=== PATIENT | male | born 1960 | race Caucasian/White ===

== ENCOUNTER 2016-11-16 16:18 | Emergency (ER) | payer OTHER ==
--- NOTE | 2016-11-16 17:33 | DIAGNOSTIC IMAGING REPORT ---
PROCEDURE: XR ABDOMEN 1 VIEW INDICATION: ABDOMINAL PAIN TECHNIQUE: AP upright view. COMPARISON: None. FINDINGS: There is moderate stool throughout the colon. Small bowel pattern is normal. Soft tissues and osseous structures are normal. No evidence of free air. IMPRESSION: 1. Moderate stool throughout the colon. Consider obstipation. 2. Otherwise negative abdomen.
--- NOTE | 2016-11-16 17:59 | ED ORDER SUMMARY ---
..... Patient: DANNY DUNLAP OrderSheet [facility] VisitID: [id number] [address] [place] [address] 56y, M Registration Date/Time: 11/16/2016 ORDER SHEET Weight: 92.9 kg Allergies: No Known Drug Allergy GENERAL ORDERS: Abdomen 1V (right flank pain after sneezing, with seatbelt on ...has pain in right flank radiating into his back. ?stone) Urgent (17:01 11/16/2016 Kendrick GENTILE) (Ack 17:03 NHouse ER Tech1) (17:10 NHouse ER Tech1) MEDICATION ORDERS: IV FLUIDS: ORDER SHEET NOTES: [Electronically signed by Eloise Dougherty R.N. (19:08 11/16/2016)] [Electronically signed by Alyse Moreira PA-C (00:42 11/17/2016)] [Electronically locked/signed by Eloise Dougherty R.N. (19:08 11/16/2016)]
--- NOTE | 2016-11-16 17:59 | ED ORDER SUMMARY ---
..... Patient: DANNY DUNLAP OrderSheet [facility] VisitID: [id number] [address] [place] [address] 56y, M Registration Date/Time: 11/16/2016 ORDER SHEET Weight: 92.9 kg Allergies: No Known Drug Allergy GENERAL ORDERS: Abdomen 1V (right flank pain after sneezing, with seatbelt on ...has pain in right flank radiating into his back. ?stone) Urgent (17:01 11/16/2016 Kendrick GENTILE) (Ack 17:03 NHouse ER Tech1) (17:10 NHouse ER Tech1) MEDICATION ORDERS: IV FLUIDS: ORDER SHEET NOTES: [Electronically signed by Eloise Dougherty R.N. (19:08 11/16/2016)] [Electronically signed by Alyse Moreira PA-C (00:42 11/17/2016)] [Electronically locked/signed by Eloise Dougherty R.N. (19:08 11/16/2016)]
--- NOTE | 2016-11-16 17:59 | ED CLINICAL REPORT ---
Clinical Report - Physicians/Mid Levels [facility] [address] [place] [address] 11/16/2016 16:18 Patient: DANNY DUNLAP Time Seen: 16:54; initial patient contact. Arrived- By private vehicle. Historian- patient. HISTORY OF PRESENT ILLNESS Chief Complaint: ABDOMINAL PAIN. At its maximum, severity described as 6 / 10. ((right rib pain post sneeze 2 days ago now worsening to the right flank, no fever, no chills, no urinary sx.). It is described as sharp and it is described as located in the right chest and the right upper quadrant and radiating to the right flank. No nausea, loss of appetite, vomiting or diarrhea. Similar symptoms previously: None. Recent medical care: Not recently seen/assessed. REVIEW OF SYSTEMS No constipation, difficulty with urination, pain with urination, urinary frequency or fever. No chills. All systems otherwise negative, except as recorded above. PAST HISTORY See nurses notes. Problems: Pharyngitis. Gastritis. Immunizations. Gastroesophageal Reflux Disease. Rib Fracture. Concussion. Myocardial Infarction. Abdominal Pain. Tetanus Status. Hypercholesterolemia. Medications: None. Allergies: No Known Drug Allergy. SOCIAL HISTORY Never smoker. No alcohol use or drug use. FAMILY HISTORY Negative. ADDITIONAL NOTES The nursing notes have been reviewed with agreement regarding the chief complaint, HPI, ROS, PMH and patient medications and allergies. PHYSICAL EXAM Vital Signs: 11/16/2016 18:00 BP: 124/78. HR: 68. RR: 16. O2 saturation: 97%. Pain level now: 6/10. Have been reviewed. Appearance: Alert. Oriented X3. No acute distress. Anxious. Neck: Normal inspection. CVS: Normal heart rate and rhythm. Heart sounds normal. Respiratory: No respiratory distress. Breath sounds normal. Chest nontender. Abdomen: Soft. Mild tenderness in the right side of the abdomen. No guarding, rebound tenderness or Izaguirre's or obturator sign present. Bowel sounds normal. No organomegaly. No mass. Femoral pulses equal. Back: Normal inspection. Skin: Skin warm and dry. Normal skin color. No rash. Normal skin turgor. Extremities: No lower extremity edema. Neuro: Oriented X 3. LABS, X-RAYS, AND EKG KUB: Normal abdominal study. (PROCEDURE: XR ABDOMEN 1 VIEW INDICATION: ABDOMINAL PAIN TECHNIQUE: AP upright view. COMPARISON: None. FINDINGS: There is moderate stool throughout the colon. Small bowel pattern is normal. Soft tissues and osseous structures are normal. No evidence of free air. IMPRESSION: 1. Moderate stool throughout the colon. Consider obstipation. 2. Otherwise negative abdomen. Electronically Final signed by:Gentry Aguillon MD 11/16/2016 5:33:03 PM Technologist: DINESH). PROGRESS AND PROCEDURES Course of Care: Patient is stable. Symptoms better. CLINICAL IMPRESSION Acute abdominal pain of unknown cause (right flank pain). Constipation INSTRUCTIONS No restrictions to activity. Drink plenty of fluids. (trial of glycerin suppository or MOM for relief of constipation. if pain increases, RTC). Warnings: GENERAL WARNINGS: Return or contact your physician immediately if your condition worsens or changes unexpectedly, if not improving as expected, or if other problems arise. Prescription Medications: Hydrocodone/APAP 5mg / 325mg: take 1 orally every 6 hours as needed for pain. Dispense ten (10). No refill. Understanding of the discharge instructions verbalized by patient. (Electronically signed by Alyse Moreira PA-C 11/17/2016 0:42)
--- NOTE | 2016-11-16 17:59 | ED CLINICAL REPORT ---
Clinical Report - Physicians/Mid Levels [facility] [address] [place] [address] 11/16/2016 16:18 Patient: DANNY DUNLAP Time Seen: 16:54; initial patient contact. Arrived- By private vehicle. Historian- patient. HISTORY OF PRESENT ILLNESS Chief Complaint: ABDOMINAL PAIN. At its maximum, severity described as 6 / 10. ((right rib pain post sneeze 2 days ago now worsening to the right flank, no fever, no chills, no urinary sx.). It is described as sharp and it is described as located in the right chest and the right upper quadrant and radiating to the right flank. No nausea, loss of appetite, vomiting or diarrhea. Similar symptoms previously: None. Recent medical care: Not recently seen/assessed. REVIEW OF SYSTEMS No constipation, difficulty with urination, pain with urination, urinary frequency or fever. No chills. All systems otherwise negative, except as recorded above. PAST HISTORY See nurses notes. Problems: Pharyngitis. Gastritis. Immunizations. Gastroesophageal Reflux Disease. Rib Fracture. Concussion. Myocardial Infarction. Abdominal Pain. Tetanus Status. Hypercholesterolemia. Medications: None. Allergies: No Known Drug Allergy. SOCIAL HISTORY Never smoker. No alcohol use or drug use. FAMILY HISTORY Negative. ADDITIONAL NOTES The nursing notes have been reviewed with agreement regarding the chief complaint, HPI, ROS, PMH and patient medications and allergies. PHYSICAL EXAM Vital Signs: 11/16/2016 18:00 BP: 124/78. HR: 68. RR: 16. O2 saturation: 97%. Pain level now: 6/10. Have been reviewed. Appearance: Alert. Oriented X3. No acute distress. Anxious. Neck: Normal inspection. CVS: Normal heart rate and rhythm. Heart sounds normal. Respiratory: No respiratory distress. Breath sounds normal. Chest nontender. Abdomen: Soft. Mild tenderness in the right side of the abdomen. No guarding, rebound tenderness or Izaguirre's or obturator sign present. Bowel sounds normal. No organomegaly. No mass. Femoral pulses equal. Back: Normal inspection. Skin: Skin warm and dry. Normal skin color. No rash. Normal skin turgor. Extremities: No lower extremity edema. Neuro: Oriented X 3. LABS, X-RAYS, AND EKG KUB: Normal abdominal study. (PROCEDURE: XR ABDOMEN 1 VIEW INDICATION: ABDOMINAL PAIN TECHNIQUE: AP upright view. COMPARISON: None. FINDINGS: There is moderate stool throughout the colon. Small bowel pattern is normal. Soft tissues and osseous structures are normal. No evidence of free air. IMPRESSION: 1. Moderate stool throughout the colon. Consider obstipation. 2. Otherwise negative abdomen. Electronically Final signed by:Gentry Aguillon MD 11/16/2016 5:33:03 PM Technologist: DINESH). PROGRESS AND PROCEDURES Course of Care: Patient is stable. Symptoms better. CLINICAL IMPRESSION Acute abdominal pain of unknown cause (right flank pain). Constipation INSTRUCTIONS No restrictions to activity. Drink plenty of fluids. (trial of glycerin suppository or MOM for relief of constipation. if pain increases, RTC). Warnings: GENERAL WARNINGS: Return or contact your physician immediately if your condition worsens or changes unexpectedly, if not improving as expected, or if other problems arise. Prescription Medications: Hydrocodone/APAP 5mg / 325mg: take 1 orally every 6 hours as needed for pain. Dispense ten (10). No refill. Understanding of the discharge instructions verbalized by patient. (Electronically signed by Alyse Moreira PA-C 11/17/2016 0:42)
--- NOTE | 2016-11-16 17:59 | ED NURSING NOTES ---
Clinical Report - Nurses [facility] [address] [place] [address] 11/16/2016 16:18 Patient: DANNY DUNLAP TRIAGE Triage time 1640. Acuity: LEVEL 4. Chief Complaint: (right rib pain post sneeze 2 days ago). Alert. No acute distress. --16:44 Liliana Ames 16:41 11/16/16. BP: 146/87. HR: 66. RR: 16. O2 saturation: 97%. Temp: 98.3 F. Pain level now 7/10. --16:44 Liliana Ames. Weight: 92.9 kg. Height/Length: 72 inches. BMI: 27.8. --16:41 Liliana Ames. Medications None. --16:42 Liliana Ames. Allergies No Known Drug Allergy. --16:42 Liliana Amse. History Arrived by private vehicle. Historian: patient and family. Accompanied by family. Onset. (2 days ago). Treatment [employer]: None. SOCIAL HX: Occasional alcohol use. ( Pt watching football game on TV during triage). --16:44 Liliana Ames. PROBLEMS: Gastroesophageal Reflux Disease. Rib Fracture. Myocardial Infarction. Abdominal Pain. Hypercholesterolemia. --16:42 Liliana Ames. ADDITIONAL SURGERIES: Rhinoplasty. Sinus Surgery. --16:42 Liliana Ames. Interventions ID band on patient. To treatment room. --16:44 Liliana Ames. PHYSICAL ASSESSMENT Ambulatory to room. GENERAL / NEURO / PSYCH: Alert. Oriented X 4. Appears in no acute distress. HEENT: Mucous membranes are pink. RESPIRATORY: Respirations not labored. Breath sounds within normal limits. CVS: Normal sinus rhythm noted. Capillary refill less than 2 seconds. GI / : Abdomen soft and nontender. Bowel sounds within normal limits. SKIN: Skin is warm and dry. --16:44 Liliana Ames. NURSING PROGRESS NOTES 16:44. Patient gowned. Reassurance given. Patient identifiers checked. Call light placed in reach. Side rails up. Bed placed in lowest position. Patient ready for evaluation- chart flagged. ( Pt placed in room by triage nurse). --19:06 Eloise Dougherty R.N. 17:10. Patient returned from radiology by stretcher with tech. --19:07 Eloise Dougherty R.N. 17:50. ( First contact with pt Pt fully dressed, sitting on chair in room , in no acute distress, at bedside.). --19:08 Eloise Dougherty R.N. DISPOSITION / DISCHARGE 18:00. Condition at departure: improved and stable. No learning barriers present. Discharge instructions provided and reviewed with the patient and spouse. Reviewed medication(s) (vicodin, MOM). Patient and spouse verbalized understanding. Written instructions provided in [place]. The patient was discharged home and accompanied by spouse. He left the Emergency Department ambulatory and via private vehicle. Spouse driving. --19:05 Eloise Dougherty R.N. 18:00 11/16/16. BP: 124/78. HR: 68. RR: 16. O2 saturation: 97% on room air. Temp: deferred. Pain level now: 04/18. --19:05 Eloise Dougherty R.N. Locked/Released at 11/16/2016 19:08 by Eloise Dougherty R.N.
--- NOTE | 2016-11-16 17:59 | ED NURSING NOTES ---
Clinical Report - Nurses [facility] [address] [place] [address] 11/16/2016 16:18 Patient: DANNY DUNLAP TRIAGE Triage time 1640. Acuity: LEVEL 4. Chief Complaint: (right rib pain post sneeze 2 days ago). Alert. No acute distress. --16:44 Liliana Ames 16:41 11/16/16. BP: 146/87. HR: 66. RR: 16. O2 saturation: 97%. Temp: 98.3 F. Pain level now 7/10. --16:44 Liliana Ames. Weight: 92.9 kg. Height/Length: 72 inches. BMI: 27.8. --16:41 Liliana Ames. Medications None. --16:42 Liliana Ames. Allergies No Known Drug Allergy. --16:42 Liliana Ames. History Arrived by private vehicle. Historian: patient and family. Accompanied by family. Onset. (2 days ago). Treatment VOICE TEACHER: None. SOCIAL HX: Occasional alcohol use. ( Pt watching football game on TV during triage). --16:44 Liliana Ames. PROBLEMS: Gastroesophageal Reflux Disease. Rib Fracture. Myocardial Infarction. Abdominal Pain. Hypercholesterolemia. --16:42 Liliana Ames. ADDITIONAL SURGERIES: Rhinoplasty. Sinus Surgery. --16:42 Liliana Ames. Interventions ID band on patient. To treatment room. --16:44 Liliana Ames. PHYSICAL ASSESSMENT Ambulatory to room. GENERAL / NEURO / PSYCH: Alert. Oriented X 4. Appears in no acute distress. HEENT: Mucous membranes are pink. RESPIRATORY: Respirations not labored. Breath sounds within normal limits. CVS: Normal sinus rhythm noted. Capillary refill less than 2 seconds. GI / : Abdomen soft and nontender. Bowel sounds within normal limits. SKIN: Skin is warm and dry. --16:44 Liliana Ames. NURSING PROGRESS NOTES 16:44. Patient gowned. Reassurance given. Patient identifiers checked. Call light placed in reach. Side rails up. Bed placed in lowest position. Patient ready for evaluation- chart flagged. ( Pt placed in room by triage nurse). --19:06 Eloise Dougherty R.N. 17:10. Patient returned from radiology by stretcher with tech. --19:07 Eloise Dougherty R.N. 17:50. ( First contact with pt Pt fully dressed, sitting on chair in room , in no acute distress, at bedside.). --19:08 Eloise Dougherty R.N. DISPOSITION / DISCHARGE 18:00. Condition at departure: improved and stable. No learning barriers present. Discharge instructions provided and reviewed with the patient and spouse. Reviewed medication(s) (vicodin, MOM). Patient and spouse verbalized understanding. Written instructions provided in [place]. The patient was discharged home and accompanied by spouse. He left the Emergency Department ambulatory and via private vehicle. Spouse driving. --19:05 Eloise Dougherty R.N. 18:00 11/16/16. BP: 124/78. HR: 68. RR: 16. O2 saturation: 97% on room air. Temp: deferred. Pain level now: 04/18. --19:05 Eloise Dougherty R.N. Locked/Released at 11/16/2016 19:08 by Eloise Dougherty R.N.
--- NOTE | 2016-11-17 00:43 | ED MAR SUMMARY ---
..... Medication Administration Record [facility] [address] [place], [place] [id number] Patient: DANNY DUNLAP Visit ID: [id number] 56y, M Weight: 92.9 kg Height/Length: 72 in BMI: 27.8 ALLERGIES: No Known Drug Allergy
--- NOTE | 2016-11-17 00:43 | ED MED RECONCILIATION SUMMARY ---
Patient: DANNY DUNLAP Medication Reconciliation Report [facility] VisitID: [id number] [address] [place] [address] 56y, M Registration Date/Time: 11/16/2016 Weight: 92.9 kg Height/Length: 72 in. BMI: 27.8 ALLERGIES: No Known Drug Allergy The patient's Home Medications are listed below: NONE. The source(s) of the original Home Medication information: Not obtained. The following Medications were given to the patient in the Emergency Department: None. The following Medications were prescribed to the patient: Hydrocodone/APAP 5mg / 325mg: take 1 orally every 6 hours as needed for pain. Dispense ten (10). No refill. -- Alyse Moreira PA-C
--- NOTE | 2016-11-17 00:43 | ED DISCHARGE INSTRUCTIONS ---
Patient: DANNY DUNLAP General Instructions [facility] VisitID: [id number] [place] [address] 56y, M Registration Date/Time: 11/16/2016 Acute abdominal pain of unknown cause (right flank pain). Constipation INSTRUCTIONS No restrictions to activity. Drink plenty of fluids. (trial of glycerin suppository or MOM for relief of constipation. if pain increases, RTC). Warnings: GENERAL WARNINGS: Return or contact your physician immediately if your condition worsens or changes unexpectedly, if not improving as expected, or if other problems arise. Prescription Medications: Hydrocodone/APAP 5mg / 325mg: take 1 orally every 6 hours as needed for pain. Dispense ten (10). No refill. Understanding of the discharge instructions verbalized by patient. ADDITIONAL INFORMATION Constipation (Adult) Constipation is bowel movements that are less frequent than usual. Stools often become very hard and difficult to pass. This may lead to abdominal pain and bloating. It may also cause painful bowel movements. Constipation may be due to a diet thats low in fiber. Some medications, especially pain medications, can also cause it. Constipation may be treated with enemas, suppositories, laxatives or stool softeners. Your doctor will advise you which will work best for you. Follow the advice below to help avoid this problem in the future. Home Care Medication: Take any medicines as directed. Some laxatives are safe only for occasional use. Others can be taken on a regular basis. Talk to your doctor or pharmacist if you have questions. General Care: Prescription pain medications can cause constipation. If you are prescribed pain medications, ask the doctor whether you should also take a stool softener. A diet high in fiber with plenty of fluids helps to maintain regular, soft bowel movements. The following foods are good sources of dietary fiber: Cereals and breads: Whole grain cereal with bran, oatmeal, rolled oats, whole grain breads Fruits: All fruits (fresh and dried), raisins, prunes, apricots, berries, figs Vegetables: Any fresh vegetables, especially peas, broccoli, brussels sprouts, winter squash, green beans, cauliflower, monroe beans, carrots Other: Popcorn, brown rice Drink plenty of water when you increase the amount of fiber you eat. Follow Up with your doctor or return to this facility if symptoms do not improve in the next few days. You may require further tests or a referral to a specialist. Get Prompt Medical Attention if any of the following occur: Fever over 100.4F (38C) Failure to resume normal bowel movements Increasing abdominal or back pain Nausea or vomiting Abdominal swelling Blood in the stool Weakness, dizziness or fainting Unexpected vaginal bleeding You have been given the following additional information: Constipation (Adult) No restrictions to activity. (Electronically signed by Alyse Moreira PA-C 11/17/2016 0:42)
--- NOTE | 2016-11-17 00:43 | ED MED RECONCILIATION SUMMARY ---
Patient: DANNY DUNLAP Medication Reconciliation Report [facility] VisitID: [id number] [address] [place] [address] 56y, M Registration Date/Time: 11/16/2016 Weight: 92.9 kg Height/Length: 72 in. BMI: 27.8 ALLERGIES: No Known Drug Allergy The patient's Home Medications are listed below: NONE. The source(s) of the original Home Medication information: Not obtained. The following Medications were given to the patient in the Emergency Department: None. The following Medications were prescribed to the patient: Hydrocodone/APAP 5mg / 325mg: take 1 orally every 6 hours as needed for pain. Dispense ten (10). No refill. -- Alyse Moreira PA-C
--- NOTE | 2016-11-17 00:43 | ED MAR SUMMARY ---
..... Medication Administration Record [facility] [address] [place], [place] [id number] Patient: DANNY DUNLAP Visit ID: [id number] 56y, M Weight: 92.9 kg Height/Length: 72 in BMI: 27.8 ALLERGIES: No Known Drug Allergy
== END 2016-11-16 18:00 | disposition home or self-care (01) ==
LOC: ED SRH 16:18
DX: K59.00 Constipation, unspecified (principal); R10.11 Right upper quadrant pain; K21.9 Gastro-esophageal reflux disease without esophagitis; E78.00 Pure hypercholesterolemia, unspecified